=== PATIENT | male | born 1945 | race Caucasian/White ===

== ENCOUNTER → 2017-05-18 | Outpatient (CLI) | payer OTHER | END | disposition home or self-care (01) | DX: R26.2 Difficulty in walking, not elsewhere classified (principal); M25.561 Pain in right knee; M25.661 Stiffness of right knee, not elsewhere classified; M62.81 Muscle weakness (generalized); M17.11 Unilateral primary osteoarthritis, right knee | CPT/HCPCS: 97161 GP; 97165 GO; 97530 GP; 97537 GO ==

== ENCOUNTER 2017-06-14 11:32 | Day surgery (SDC) | payer OTHER ==
[~2017-06-14] VITALS: Ht 175.3 cm; Wt 97.5 kg
[~2017-06-14 11:32] MED LIST: LIPITOR40 MG PO; TRAVATAN Z5 ML LEFT EYE; ZESTORETIC 20-1 EAC1 PO; ZYLOPRIM100 MG PO
[2017-06-14 12:12] VITALS: BP 173/76
[2017-06-14 20:54] VITALS: BP 145/67
[2017-06-14 23:34] VITALS: BP 141/60
[2017-06-15 04:05] VITALS: BP 129/62
[2017-06-15 07:50] VITALS: BP 162/74
[2017-06-15] MEDS ORDERED: ASPIRIN EC325 MG PO (08:49)
[2017-06-15] MEDS ORDERED: ENDOCET 5-3251 EACH PO (08:50)
[2017-06-15 12:03] VITALS: BP 135/62
== END 2017-06-15 12:54 | disposition home or self-care (01) ==
LOC: SDC 11:32 → 2EAST 17:00 → 2SOUTH 17:00 → ENRESERV 17:41 → 2EAST 20:47
PROC: 0SRC0LZ Replacement of Right Knee Joint with Medial Unicondylar Synthetic Substitute, Open Approach (ICD-10-PCS; principal; 2017-06-14)
DX: M17.11 Unilateral primary osteoarthritis, right knee (principal); I10 Essential (primary) hypertension; Z88.2 Allergy status to sulfonamides; Z87.891 Personal history of nicotine dependence
CPT/HCPCS: C1713; G0378; G8978 GP CI; G8979 GP CH; G8980 GP CI; J0131; J0690; J1100; J1885; J2405; J2795; J3010; J7050; S0020